=== PATIENT | male | born 1940 | race African-American/Black ===

== ENCOUNTER 2022-12-28 14:23 | Emergency (ER) | payer MEDICARE, MEDICAID ==
[~2022-12-28] VITALS: Ht 185.4 cm; Wt 61.0 kg
[~2022-12-28 14:23] MED LIST: ALENDRONATE; CALCIUM; KEPP500 PO; MIRTAZAPINE
[2022-12-28 14:41] VITALS: BP 137/77; PULSE 98; RESP 16; O2SAT 97
[2022-12-28] MEDS ORDERED: HALOPERIDOL 5MG TABLET PO ONE (15:30)
[2022-12-28 15:39] LABS: BASOPHILS % 0.5 % (0.0-2.0); EOSINOPHILS % 0.3 % (0.0-5.0); HEMATOCRIT. 39.4 % (42.0-52.0); HEMOGLOBIN. 13.4 g/dL (14.0-18.0); LYMPHOCYTES % 22.1 % (20.0-50.0); MEAN CORPUSCULAR HEMOGLOBIN 32.8 pg (28.0-32.0); MEAN CORPUSCULAR VOLUME 96.5 fL (80.0-94.0); MONOCYTES % 7.7 % (2.0-8.0); NEUTROPHILS % 69.4 % (40.0-76.0); PLATELET 241 x1000/uL (130-400); RED BLOOD CELL COUNT 4.08 mill/uL (4.7-6.1); RED CELL DISTRIBUTION WIDTH 13.6 % (11.6-14.6); WHITE BLOOD COUNT 4.7 x1000/uL (4.5-11.0)
[2022-12-28 16:02] LABS: CHLORIDE 109 mEq/L (98-107); INDEX HEMOLYSI 1 (1-3); INDEX ICTERIC 1 (1-4); INDEX LIPEMIC 1 (1-3); POTASSIUM 3.4 mEq/L (3.5-5.1); SODIUM 141 mEq/L (136-145)
[2022-12-28 16:10] LABS: ALANINE AMINOTRANSFERASE 36 IU/L (13-61); ALBUMIN 3.2 g/dL (3.4-5.0); ASPARTATE AMINOTRANSFERASE 33 IU/L (15-37); BILIRUBIN TOTAL 0.3 mg/dL (0.1-1.0); CALCIUM 8.3 mg/dL (8.5-10.1); CARBON DIOXIDE 26 mEq/L (21-32); CREATININE 0.5 mg/dL (0.6-1.3); GLUCOSE 93 mg/dL (70-105); TROPONIN I HIGH SENSITIVITY 10 ng/L (<78); UREA NITROGEN BLOOD 13 mg/dL (7-21)
[2022-12-28] MEDS ORDERED: CEFTRIAXONE 1GM PREMIX 50 ML IV ONE (17:15)
== END 2022-12-28 21:00 | disposition home or self-care (01) ==
LOC: ER 14:23
DX: M25.559 Pain in unspecified hip (principal); M54.2 Cervicalgia; Z86.73 Personal history of transient ischemic attack (TIA), and cerebral infarction without residual deficits; W19.XXXA Unspecified fall, initial encounter; Y93.89 Activity, other specified; Y92.89 Other specified places as the place of occurrence of the external cause; Y99.8 Other external cause status
CPT/HCPCS: 99284; 96365; 71045; 80053; 85025; 84484; 36415; J0696; 71250; 99285

== ENCOUNTER 2023-08-08 13:26 | Emergency (ER) | payer MEDICARE, MEDICAID ==
[~2023-08-08] VITALS: Ht 175.3 cm; Wt 55.0 kg
[2023-08-08 13:32] VITALS: TEMP 98.4; O2SAT 98
[2023-08-08 15:25] VITALS: BP 120/60; PULSE 60; RESP 16
[2023-08-08] MEDS: KETOROLAC 30MG/ML VIAL IM ONE (15:25)
[2023-08-08] MEDS: HYDROCODONE/ACETAMINOPHEN 5/325MG TABLET PO ONE (15:25)
[2023-08-08] MEDS ORDERED: IBUP-2028 MT (15:26)
== END 2023-08-08 19:42 | disposition home or self-care (01) ==
LOC: ER 13:26
DX: M16.11 Unilateral primary osteoarthritis, right hip (principal); Z86.73 Personal history of transient ischemic attack (TIA), and cerebral infarction without residual deficits
CPT/HCPCS: 99283; 73502; 96372; J1885

== ENCOUNTER 2023-08-17 09:18 | Emergency (ER) | payer MEDICARE, MEDICAID ==
[~2023-08-17] VITALS: Ht 182.9 cm; Wt 90.0 kg
[~2023-08-17 09:18] MED LIST changes: +IBUP-2028 MT
[2023-08-17 09:20] VITALS: O2SAT 97
[2023-08-17] MEDS: KETOROLAC 30MG/ML VIAL IM ONE (11:37)
[2023-08-17] MEDS: METHOCARBAMOL 500MG TABLET PO ONE (11:38)
[2023-08-17 11:45] LABS: DIFFERENTIAL COMMENT 0; EOSINOPHILS % 0.7 % (0.0-5.0); HEMATOCRIT. 37.7 % (42.0-52.0); HEMOGLOBIN. 12.8 g/dL (14.0-18.0); LYMPHOCYTES % 23.6 % (20.0-50.0); MEAN CORPUSCULAR HEMOGLOBIN 34.2 pg (28.0-32.0); MEAN CORPUSCULAR HGB CONC 34.1 g/dL (31.0-37.0); MEAN CORPUSCULAR VOLUME 100.4 fL (80.0-94.0); MEAN PLATELET VOLUME 6.7 fl (7.4-10.4); MONOCYTES % 8.3 % (2.0-8.0); NEUTROPHILS % 66.4 % (40.0-76.0); PLATELET 316 x1000/uL (130-400); RED BLOOD CELL COUNT 3.75 mill/uL (4.7-6.1); RED CELL DISTRIBUTION WIDTH 14.3 % (11.6-14.6); WHITE BLOOD COUNT 4.8 x1000/uL (4.5-11.0)
[2023-08-17 11:47] LABS: CHLORIDE 101 mEq/L (98-107); POTASSIUM 3.6 mEq/L (3.5-5.1); SODIUM 136 mEq/L (136-145)
[2023-08-17 11:48] LABS: CARBON DIOXIDE 28 mEq/L (21-32)
[2023-08-17 11:51] LABS: PARTIAL THROMBOPLASTIN TIME 31.3 sec (23.4-31.0); PROTHROMBIN TIME 11.1 sec (9.6-11.0)
[2023-08-17 11:53] LABS: CREATININE 0.7 mg/dL (0.6-1.3); GLUCOSE 76 mg/dL (70-105); UREA NITROGEN BLOOD 10 mg/dL (9-23)
[2023-08-17] MEDS ORDERED: ACET-2708 MT (13:10)
[2023-08-17 17:08] VITALS: BP 124/71; PULSE 65; RESP 18; TEMP 97.9
== END 2023-08-17 17:41 | disposition home or self-care (01) ==
LOC: ER 09:27 → EDBEDREQ 12:56 → EDBEDREQTM 12:56 → CANBEDREQ 13:10 → ER 17:41
DX: G89.29 Other chronic pain (principal); M54.50 Low back pain, unspecified; F17.210 Nicotine dependence, cigarettes, uncomplicated; M84.48XA Pathological fracture, other site, initial encounter for fracture; Z86.73 Personal history of transient ischemic attack (TIA), and cerebral infarction without residual deficits
CPT/HCPCS: 99285; 72131; 80048; 85025; 85610; 85730; 36415; 96372; J1885